=== PATIENT | female | born 2000 | race Caucasian/White ===

== ENCOUNTER 2018-01-26 08:58 | Emergency (ER) | payer OTHER ==
[~2018-01-26] VITALS: Ht 162.6 cm; Wt 78.9 kg
[~2018-01-26 08:58] MED LIST: ACCUNEB SO1.25 MG/1 INH; ALBUTEROL2.5 MG/0.1; ALBUTEROL2.5 MG/0.1 INH; ALEVE220 M1 PO; BENTYL 10 MG CA10 M1 PO; BRINTELLIX10 MG PO; CLONAZEPAM PO; FLAGYL500 MG PO; IBUPROFEN 800800 MG PO; MICROGESTIN1 EAC1 PO; MOBIC7.5 MG PO; NAPROSYN500 MG PO; NORCO 5-325 TA1 EACH PO; POLYMYXIN B/TMP10 ML OP; PREDNISONE 20 M20 M1 PO; REGLAN 10 MG TA10 MG; VENTOLIN HFA INH8 GM IH; XOPENEX0.31 MG/3 IH; ZOFRAN ODT4 MG PO; ZOLOFT25 MG PO; ZPAK PO; [UNRECOGNIZED DRUG - OTHER]
[2018-01-26 09:13] LABS: ABSOLUTE EOSINOPHILS 0.3 thou/uL (0.0-0.7); ABSOLUTE LYMPHOCYTES 1.6 thou/uL (0.8-5.3); ABSOLUTE MONOCYTES 0.8 thou/uL (0.0-1.2); ABSOLUTE NEUTROPHILS 3.1 thou/uL (1.6-8.1); BASOPHILS 0.6 %; EOSINOPHILS 4.7 %; HEMATOCRIT 35.6 % (37.0-47.0); HEMOGLOBIN 11.7 gm/dL (12.0-15.0); LYMPHOCYTES 28.1 %; MCH 27.6 pg (26.0-34.0); MCV 83.7 fL (80.0-100.0); MONOCYTES 13.9 %; MPV 9.3 fl. (7.2-11.1); NUCLEATED RBCS 0 /100WBC; PLATELET COUNT* 271 thou/uL (150-400); POLYS 52.7 %; RBC 4.25 mil/uL (4.20-5.00); WBC 5.8 thou/uL (4.0-11.0)
[2018-01-26 09:23] LABS: CALCIUM 8.3 mg/dL (8.5-10.1); CREATININE 0.7 mg/dL (0.6-1.3); POTASSIUM 3.8 mmol/L (3.5-5.1)
[2018-01-26 09:27] LABS: ALBUMIN 3.5 g/dL (3.4-5.0); TOTAL BILIRUBIN 0.2 mg/dL (<0.1-1.0); TOTAL PROTEIN 7.3 g/dL (6.4-8.2)
[2018-01-26 09:47] VITALS: BP 115/65
== END 2018-01-26 09:47 | disposition home or self-care (01) ==
LOC: M.ERS 08:58
PROVIDERS: Family Medicine
DX: R10.30 Lower abdominal pain, unspecified (principal); Z88.8 Allergy status to other drugs, medicaments and biological substances; N30.10 Interstitial cystitis (chronic) without hematuria; J45.909 Unspecified asthma, uncomplicated; F32.9 Major depressive disorder, single episode, unspecified; Z90.49 Acquired absence of other specified parts of digestive tract

== ENCOUNTER → 2018-02-18 | Outpatient (CLI) | payer OTHER | LOC: M.RAD 16:32 | DX: R05 Cough (principal); J02.9 Acute pharyngitis, unspecified; R50.9 Fever, unspecified; R11.10 Vomiting, unspecified ==

== ENCOUNTER 2018-10-06 10:21 | Emergency (ER) | payer OTHER ==
[~2018-10-06] VITALS: Ht 162.6 cm; Wt 73.5 kg
[2018-10-06 10:58] LABS: ABSOLUTE EOSINOPHILS 0.3 thou/uL (0.0-0.7); ABSOLUTE LYMPHOCYTES 2.1 thou/uL (0.8-5.3); ABSOLUTE MONOCYTES 0.4 thou/uL (0.0-1.2); ABSOLUTE NEUTROPHILS 3.2 thou/uL (1.6-8.1); BASOPHILS 0.6 %; EOSINOPHILS 4.8 %; HEMATOCRIT 36.3 % (37.0-47.0); HEMOGLOBIN 12.2 gm/dL (12.0-15.0); LYMPHOCYTES 34.5 %; MCH 27.7 pg (26.0-34.0); MCHC 33.5 g/dL (28.0-37.0); MCV 82.8 fL (80.0-100.0); MONOCYTES 6.6 %; MPV 9.9 fl. (7.2-11.1); NUCLEATED RBCS 0 /100WBC; PLATELET COUNT* 273 thou/uL (150-400); POLYS 53.5 %; RBC 4.38 mil/uL (4.20-5.00); RDW-CV 13.7 % (10.5-14.5); WBC 6.1 thou/uL (4.0-11.0)
[2018-10-06 11:10] LABS: ALBUMIN 4.1 g/dL (3.4-5.0); ALKALINE PHOSPHATASE 75 U/L (46-116); ANION GAP 8 mmol/L (7-16); BUN 16 mg/dL (7-18); CALCIUM 8.9 mg/dL (8.5-10.1); CHLORIDE 103 mmol/L (98-107); CO2 26 mmol/L (21-32); CREATININE 0.7 mg/dL (0.6-1.3); GLUCOSE 88 mg/dL (70-99); POTASSIUM 3.7 mmol/L (3.5-5.1); SGOT 16 U/L (15-37); SGPT 18 U/L (30-65); SODIUM 137 mmol/L (136-145); TOTAL BILIRUBIN 0.4 mg/dL (<0.1-1.0); TOTAL PROTEIN 7.7 g/dL (6.4-8.2); TROPONIN-I LEVEL <0.06 ng/mL (<0.06)
[2018-10-06 11:42] LABS: URINE BILIRUBIN NEGATIVE (Negative); URINE BLOOD NEGATIVE (Negative); URINE CLARITY CLEAR; URINE COLOR YELLOW; URINE GLUCOSE-RANDOM NEGATIVE (Negative); URINE KETONES NEGATIVE (Negative); URINE LEUKOCYTES-REFLEX NEGATIVE (Negative); URINE NITRITE-REFLEX NEGATIVE (Negative); URINE PROTEIN NEGATIVE (Negative); URINE SPECIFIC GRAVITY 1.015 (1.005-1.030); URINE UROBILINOGEN 0.2 E.U./dl (0.2-1.0)
[2018-10-06 12:57] VITALS: BP 112/70
--- NOTE | 2018-10-06 14:42 | EKG ---
[place] [address] ELECTROCARDIOGRAM REPORT Name: RONAL RIDDLE Room: [facility]#: [id number] Admission: 10/06/18 Attend Phys: Discharge: 10/06/18 Date of : [birth year] Report #: [id number] THIS REPORT FOR: //name// [facility] ED Test Date: 2018-10-06 Test Time: 10:23:25 Pat Name: RONAL RIDDLE Department: Room: Gender: F [employer]phalt Dauber: Massiel WATKINS RN : 2000 Requested By: Meghan Delgado Order Number: [id number] MD: Tru Chne Measurements Intervals [place] Rate: 66 P: 6 MS: 176 QRS: 83 QRSD: 102 T: 54 QT: 437 QTc: 458 Interpretive Statements Sinus rhythm Baseline wander in lead(s) V1 Compared to ECG 07/10/2015 15:55:26 No significant changes Electronically Signed On 10-06-2018 14:41:57 CDT by Tru Chen [email or web address] <ELECTRONICALLY SIGNED> By: Tru Chen MD, [facility] 10/06/18 1441 1023 1023 Tru Chen MD, [facility] /EPI
== END 2018-10-06 12:57 | disposition home or self-care (01) ==
LOC: M.ERS 10:21
PROVIDERS: Physician Assistant
DX: R07.89 Other chest pain (principal); I45.81 Long QT syndrome; J45.909 Unspecified asthma, uncomplicated; F32.9 Major depressive disorder, single episode, unspecified; Z90.49 Acquired absence of other specified parts of digestive tract; Z88.6 Allergy status to analgesic agent; Z88.8 Allergy status to other drugs, medicaments and biological substances; Z91.040 Latex allergy status

== ENCOUNTER → 2018-12-02 | Outpatient (CLI) | payer OTHER | LOC: M.ULTRA 16:00 | DX: Z34.01 Encounter for supervision of normal first pregnancy, first trimester (principal); Z87.59 Personal history of other complications of pregnancy, childbirth and the puerperium; Z3A.01 Less than 8 weeks gestation of pregnancy ==